=== PATIENT | male | born 2000 | race Hispanic/Latino ===

== ENCOUNTER 2025-06-03 09:30 | Outpatient (CLI) | payer OTHER | END 2025-06-03 09:31 | disposition home or self-care (01) | LOC: PET 09:30 | PROVIDERS: ATTEND Internal Medicine | DX: C81.22 Mixed cellularity Hodgkin lymphoma, intrathoracic lymph nodes (principal); E88.9 Metabolic disorder, unspecified | CPT/HCPCS: 78815; A9552 ==